=== PATIENT | female | born 2000 | race Two or more races ===

== ENCOUNTER 2024-11-16 15:24 | Emergency (ER) | payer BC ==
[~2024-11-16] VITALS: Ht 162.6 cm; Wt 81.6 kg
[2024-11-16] MEDS ORDERED: CEFTRIAXONE SODIUM 1,000 MG VIAL IM STA (16:43)
[2024-11-16] MEDS ORDERED: LIDOCAINE HCL 1% 10ML VIAL ONE (16:46)
[2024-11-16] MEDS ORDERED: CEFTRIAXONE SODIUM 1,000 MG VIAL ONE (16:46)
[2024-11-16] MEDS ORDERED: LIDOCAINE HCL 1% 10ML VIAL PERCUT STA (16:47)
[2024-11-16] MEDS ORDERED: BACITRACIN-NEOMYCIN-POLYMYXIN 0.9 GM PACKET TOP ONE (16:52)
[2024-11-16] MEDS ORDERED: KETOROLAC TROMETHAMINE 15 MG VIAL IM STA (16:55)
[2024-11-16] MEDS ORDERED: KETOROLAC TROMETHAMINE 30 MG VIAL ONE (16:56)
[2024-11-16] MEDS ORDERED: CEFUROXIME500 MG PO (17:06)
[2024-11-16] MEDS ORDERED: ACETAMINOPHEN500 M1 PO (17:22)
== END 2024-11-16 17:16 | disposition home or self-care (01) ==
LOC: ER 15:24
DX: S61.303A Unspecified open wound of left middle finger with damage to nail, initial encounter (principal); X58.XXXA Exposure to other specified factors, initial encounter; Y93.89 Activity, other specified; Y92.821 Forest as the place of occurrence of the external cause; Y99.9 Unspecified external cause status